=== PATIENT | male | born 1985 | race African-American/Black ===

== ENCOUNTER 2020-09-04 14:20 | Emergency (ER) | payer OTHER, SELFPAY ==
--- NOTE | ~2020-09-04 | XR_ITS ---
EXAMINATION: XR hand LT min 3V DATE: 09/04/2020 14:35 INDICATION: Left hand pain and swelling after punching a wall TECHNIQUE: Posteroanterior, oblique and lateral views of the left hand were obtained. COMPARISON: None. FINDINGS: 3-4 mm dorsal subluxation at one of the carpal metacarpal joints, likely the fourth. There is corresp onding 3-4 mm dorsal displacement of a small avulsion fracture involving the dorsal margin of the art icular surface of the juxtaposed carpal bone, likely the hamate. There is minimal displacement of an intra-articular fracture at the base of the fourth metacarpal. Nondisplaced oblique extra articular f racture across the proximal metaphyseal region of the left third metacarpal. Chronic nonunited avulsi on fracture at the tip of the lateral malleolus with additional small corticated heterotopic ossicle in the region of the triangular fibrocartilage complex consistent with old trauma. Minimal osteoarthr itis at a few of the interphalangeal joints. Mild soft tissue swelling of the dorsal aspect of the forrest nd. IMPRESSION: 1. Mildly displaced intra-articular fracture subluxation at what is likely the fourth carpal metacarp al joint and nondisplaced extra articular fracture at the proximal third metacarpal. 2. 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 Reviewed, dictated and finalized at location [facility]. [facility] IMPRESSION: 1. Mildly displaced intra-articular fracture subluxation at what is likely the fourth carpal metacarpal joint and nondisplaced extra articular fracture at the proximal third metacarpal. 2. Chronic nonunited ulnar styloid avulsion fracture with adjacent small hetero topic ossicle suggesting associated chronic tear of the triangular fibrocartila ge complex.
[2020-09-04 14:27] VITALS: BP 107/61; PULSE 112; RESP 20; TEMP 36.8; O2SAT 100
--- NOTE | 2020-09-04 14:38 | ED.UPPEXIN ---
HPI - Extremity Injury (Upper) General Chief Complaint: Extremity Injury, Upper Stated Complaint: L HAND INJURY Time Seen by Provider: 09/04/20 14:38 Source: patient Mode of arrival: ambulatory Limitations: no limitations History of Present Illness HPI narrative: Ning Osman is a 35 yo male with no PMH [facility] after striking wall. Left hand is swollen and painful, unable to tell if deformed because of the amount of edema. Incident occurred at 9:00 this morning Related Data Allergies Allergy/AdvReac Type Severity Reaction Status Date / Time No Known Allergies Allergy Verified 09/04/20 14:30 Review of Systems Review of Systems: Narrative: CONSTITUTIONAL: Denies fever, chills, sweats. EYES: Denies visual changes, redness, discharge. ENT: Denies rhinorrhea, congestion, sore throat, otalgia. CARDIOVASCULAR: Denies chest pain, palpitations, edema. RESPIRATORY: Denies dyspnea, wheezing, cough GASTROINTESTINAL: Denies abdominal pain, nausea, vomiting, diarrhea. GENITOURINARY: Denies dysuria, hematuria, abnormal discharge SKIN: Denies rash or itching. NEUROLOGIC: Denies numbness, or focal weakness. PSYCHIATRIC: Denies anxiety or depression. Left hand swelling and pain PMFSH Past Medical History Medical History (Updated 09/04/20 @ 15:12 by Dayanara Benton CNP) No acute medical problems Family History Family History Other No acute medical problems Social History Social History (Updated 09/04/20 @ 14:45 by Dayanara Benton CNP) Smoking packs per day: 1 Smoking cigarettes per day: 20.0 Smoking status: Current every day smoker Alcohol intake: current Comments At time of signature, I agree with nursing past medical, surgical, social and family history. There is no relevant family history pertinent to the presenting complaint. Exam Narrative: Exam Narrative: GENERAL: This is a well-nourished, well-developed patient, in mild distress. HEAD: normocephalic, atraumatic. EYES: PERRL. Sclera clear/white. Vision is grossly intact. EARS: External ears normal. Hearing grossly intact. NOSE: External nose normal , no rhinorrhea. THROAT: Mucous membranes moist, p NECK: Neck supple, non-tender CARDIOVASCULAR: Tachycardic rate and rhythm without murmurs, gallops, or rubs. RESPIRATORY: Clear to auscultation. Breath sounds equal bilaterally. No wheezes, rales, or rhonchi. GASTROINTESTINAL: Abdomen soft, non-tender, SKIN: warm, intact with no suspicious lesions or rash, good texture and turgor. NEURO: awake, alert, and oriented to person, place and time. There were no obvious focal neurologic abnormalities. Steady gait EXTREMITIES: Left hand endemic across metacarpals unable to finger touch R make fist, 2+ radial pulse, fingers jennifer with capillary refill less than 2 seconds BACK: Nontender without deformity Course Course Emergency Course: Patient comes to express care after hitting wall with left hand and developing pain and swelling Review of hand shows fracture at-3 to 4 mm dorsal subluxing at the fourth metacarpal joint and displacement of a small avulsion fracture involving dorsal margin of the articular surface of the juxta opposed carpal bone additionally there is minimal displacement of the intra-articular fracture at the base of the fourth metacarpal. Nondisplaced oblique extra-articular fracture across the proximal metaphyseal area of third metacarpal chronic nonunited avulsion fracture of lateral malleolus bolus with additional small corticated heterotrophic ossicle in the region of triangular fibrocartilage complex consistent with old trauma minimal osteoarthritis has mild soft tissue swelling sugar tong OCL applied to immobilize hand. Discussed with patient that needs follow up with orthopedics. Directions on icing, elevation, and ain control given to pt. Referred to [facility]. Vital Signs Vital signs: Vital Signs [place]
== END 2020-09-04 15:40 | disposition home or self-care (01) ==
PROVIDERS: Emergency Provider Nurse Practitioner
DX: S62.92XA Unspecified fracture of left hand, initial encounter for closed fracture (principal); W22.09XA Striking against other stationary object, initial encounter; F17.210 Nicotine dependence, cigarettes, uncomplicated
CPT/HCPCS: 29125; 73130; 99214; A4565; G0463